=== PATIENT | female | born 1990 | race Caucasian/White ===

== ENCOUNTER 2019-11-09 09:41 | Emergency (ER) | payer SELFPAY ==
[2019-11-09 10:43] LABS: Absolute Lymphocytes (CBC) 1.7 K/uL (0.7-4.9); Basophils % 0.1 % (0-1.3); Lymphocytes % 9.7 % (15.3-44.8)
[2019-11-09] MEDS ORDERED: MORPHINE 4 MG/ML SYR ONE (10:54)
[2019-11-09] MEDS ORDERED: ONDANSETRON 4 MG/2 ML VIAL ONE (10:54)
[2019-11-09] MEDS ORDERED: NA CHLORIDE 0.9% 1,000 ML ONE (10:54)
[2019-11-09 11:04] LABS: Urine Blood 2+ (NEG); Urine Glucose NEGATIVE (NEG); Urine Protein 1+ (NEG)
[2019-11-09 11:14] LABS: Albumin 3.8 g/dL (3.4-5.0); Bilirubin Direct 0.2 mg/dL (0-0.2); Bilirubin Total 0.6 mg/dL (0.2-1.0); Potassium 3.3 mmol/L (3.5-5.1); Protein, Total 7.8 g/dL (6.4-8.2)
--- NOTE | 2019-11-09 11:18 | RAD REPORT ---
EXAM DESCRIPTION: CTAbdomen Pelvis W Contrast - 11/09/2019 11:03 am CLINICAL HISTORY: Abdominal pain. ABD PAIN COMPARISON: No comparisons TECHNIQUE: Biphasic CT imaging of the abdomen and pelvis was performed with 100 ml non-ionic IV cont rast. All CT scans are performed using dose optimization technique as appropriate and may include automated exposure control or mA/KV adjustment according to patient size. FINDINGS: The lung bases are clear. The liver, spleen, pancreas, adrenal glands and kidneys are within normal limits. No bowel obstruction, free air, free fluid or abscess. The appendix is normal. No evidence of signi ficant lymphadenopathy. No suspicious bony findings. IMPRESSION: No acute intra-abdominal or pelvic finding.
[2019-11-09 11:22] LABS: Urine Bacteria 20-50 /HPF (<20); Urine Culture Reflex Order REFLEXED; Urine Mucus HEAVY /HPF (NONE SEEN); Urine RBC >50 /HPF (NONE SEEN)
--- NOTE | 2019-11-09 11:46 | EDPHYS ---
Physician Documentation [facility] Name: Gabbi Oliva Age: 29 yrs Sex: Female : 1990 Arrival Date: 11/09/2019 Time: 09:42 Bed 19 Private MD: None, None ED Physician Chai Kern HPI: 11/08 10:50 This 29 yrs old Female presents to ER via Ambulatory with complaints of pm1 Abdominal Pain, Vomiting. 10:50 The patient presents with abdominal pain in the left lower quadrant. Onset: The pm1 symptoms/episode began/occurred this morning. The symptoms do not radiate. Associated signs and symptoms: Pertinent positives: nausea and vomiting, Pertinent negatives: chest pain, constipation, diarrhea, dysuria, fever, headache, shortness of breath. The symptoms are described as achy. Modifying factors: The symptoms are alleviated by nothing, the symptoms are aggravated by nothing. Severity of pain: in the emergency department the pain has improved prior to arrival. The patient has not experienced similar symptoms in the past. The patient has not recently seen a physician. 10:50 Patient reports that at initial onset of pain, left flank pain present that has now pm1 resolved. 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 - Social history:: Smoking status: Patient denies any tobacco usage or history of. ROS: 10:50 Constitutional: Negative for fever, chills, and weight loss, Cardiovascular: Negative pm1 for chest pain, palpitations, and edema, Respiratory: Negative for shortness of breath, cough, wheezing, and pleuritic chest pain. 10:50 Back: Negative for injury and pain, : Negative for injury, bleeding, discharge, and swelling, MS/Extremity: Negative for injury and deformity, Skin: Negative for injury, rash, and discoloration, Neuro: Negative for headache, weakness, numbness, tingling, and seizure. 10:50 Abdomen/GI: Positive for abdominal pain, nausea and vomiting, Negative for diarrhea, constipation. Exam: 10:50 Constitutional: This is a well developed, well nourished patient who is awake, alert, pm1 and in no acute distress. Head/Face: Normocephalic, atraumatic. Chest/axilla: Normal chest wall appearance and motion. Nontender with no deformity. No lesions are appreciated. 10:50 Back: No spinal tenderness. No costovertebral tenderness. Full range of motion. Skin: Warm, dry with normal turgor. Normal color with no rashes, no lesions, and no evidence of cellulitis. 10:50 MS/ Extremity: Pulses equal, no cyanosis. Neurovascular intact. Full, normal range of motion. 10:50 Cardiovascular: Exam negative for acute changes, Rate: normal, Rhythm: regular, Pulses: no pulse deficits are appreciated. 10:50 Respiratory: Exam negative for acute changes, respiratory distress, shortness of breath. 10:50 Abdomen/GI: Inspection: abdomen appears normal, Palpation: soft, in all quadrants, mild abdominal tenderness, in the left lower quadrant, mass, is not appreciated, rebound tenderness, is not appreciated. 10:50 Musculoskeletal/extremity: 10:50 Neuro: Exam negative for acute changes, Orientation: is normal, Mentation: is normal, Motor: moves all fours. Vital Signs: 09:54 BP 137 / 93; Pulse 77; Resp 16; Temp 97.8; Pulse Ox 100% ; Weight 68.04 kg; Height 5 hb ft. 3 in. (160.02 cm); Pain 5/10; 10:30 BP 108 / 73; Pulse 65; Resp 18; Pulse Ox 100% ; ah 11:57 BP 100 / 69; Pulse 79; Resp 17; Pulse Ox 100% ; ah 09:54 Body Mass Index 26.57 (68.04 kg, 160.02 cm) hb MDM: 09:59 Patient medically screened. pm1 11:41 Data reviewed: vital signs. Data interpreted: Pulse oximetry: on room air is 100 %. pm1 Interpretation: normal. 11:41 ED course: Patient's urine microscopy with contamination from menses. Patient on second pm1 day. Patient reports that she has had some vaginal itching, for the past 2 days, feels like a yeast infection with some urinary frequency. Therefore will treat patient with Diflucan and prescription for UTI. Patient believes possible anaphylaxis from PCN. 11:44 Counseling: I had a detailed discussion with the patient and/or guardian regarding: the pm1 historical points, exam findings, and any diagnostic results supporting the discharge/admit diagnosis, lab results, radiology results, the need for outpatient follow up, to return to the emergency department if symptoms worsen or persist or if there are any questions or concerns that arise at home. 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 pm11/08 10:12 Order name: Basic Metabolic Panel; Complete Time: 11:26 pm11/08 10:12 Order name: CBC with Diff; Complete Time: 10:56 pm11/08 10:12 Order name: Creatinine for Radiology; Complete Time: : pm11/08 10:12 Order name: Hepatic Function; Complete Time: : pm11/08 10:12 Order name: Lipase; Complete Time: : pm11/08 10:12 Order name: Urine Microscopic Only; Complete Time: : pm11/08 10:12 Order name: CT Abd/Pelvis - IV Contrast Only; Complete Time: : pm11/08 10:43 Order name: Urine Dipstick--Ancillary (enter results); Complete Time: 11:08 tt3 11/08 10:50 Order name: Urine --Ancillary (enter results); Complete Time: 11:08 tt3 11/08 11:22 Order name: Urine Culture [facility] 11/08 10:12 Order name: IV Saline Lock; Complete Time: 10:45 pm11/08 10:12 Order name: Labs collected and sent; Complete Time: 10:46 pm11/08 10:12 Order name: Urine Dipstick-Ancillary (obtain specimen); Complete Time: 10:45 pm11/08 10:12 Order name: Urine Test (obtain specimen); Complete Time: 10:45 pm1 Administered Medications: 10:45 Drug: NS 0.9% 1000 ml Route: IV; Rate: 1000 ml; Site: right antecubital; ah 21:58 Follow up: Response: No adverse reaction; IV Status: Completed infusion ah 10:45 Drug: morphine 4 mg Route: IVP; Site: right antecubital; 11:45 Follow up: Response: No adverse reaction 10:45 Drug: Zofran (Ondansetron) 4 mg Route: IVP; Site: right antecubital; 11:45 Follow up: Response: No adverse reaction 12:00 Drug: DiFLUcan 150 mg Route: PO; 12:04 Follow up: Response: Medication administered at discharge. Disposition: 11/09/19 11:45 Discharged to Home. Impression: Unspecified abdominal pain, Urinary tract infection, site not specified. - Condition is Stable. - Discharge Instructions: Abdominal Pain, Adult, Urinary Tract Infection, Adult, Vaginal Yeast Infection, Adult. - Prescriptions for Macrobid 100 mg Oral Capsule - take 1 capsule by ORAL route every 12 hours for 10 days; 20 capsule. Tylenol- Codeine #3 300-30 mg Oral Tablet - take 2 tablets by ORAL route every 6 hours As needed; 20 tablet. - Medication Reconciliation Form, Thank You Letter, Antibiotic Education, Prescription Opioid Use form. - Follow up: Emergency Department; When: As needed; Reason: Worsening of condition. Follow up: Private Physician; When: 2 - 3 days; Reason: Recheck today's complaints, Continuance of care, Re-evaluation by your physician. - Problem is new. - Symptoms have improved. Addendum: 11/10/2019 20:20 Co-signature as Attending Physician, Chai Kern MD I agree with the assessment and c gracia plan of care. Signatures: Dispatcher [employer] EDChai Laguerre MD MD cha Marinas, Patrick, SUPERVISOR IN CIRCUIT TESTING SUPERVISOR IN CIRCUIT TESTING pm1 Tammy Ram RN RN Laura Steven RN RN Corrections: (The following items were deleted from the chart) 11/08 12:16 11:45 11/09/2019 11:45 Discharged to Home. Impression: Unspecified abdominal pain; Urinary tract infection, site not specified. Condition is Stable. Forms are Medication Reconciliation Form, Thank You Letter, Antibiotic Education, Prescription Opioid Use. Follow up: Emergency Department; When: As needed; Reason: Worsening of condition. Follow up: Private Physician; When: 2 - 3 days; Reason: Recheck today's complaints, Continuance of care, Re-evaluation by your physician. Problem is new. Symptoms have improved. pm1
--- NOTE | 2019-11-09 11:46 | ER ---
Nurse's Notes [facility] Name: Gabbi Oliva Age: 29 yrs Sex: Female : 1990 Arrival Date: 11/09/2019 Time: 09:42 Bed 19 Private MD: None, None Diagnosis: Unspecified abdominal pain;Urinary tract infection, site not specified Presentation: 11/08 09:54 Chief complaint: Sharp intermittentl sided abdominal pain and N/V upon waking today. hb Not tolerating fluids. Coronavirus screen: Proceed with normal triage. Ebola Screen: No symptoms or risks identified at this time. Initial Sepsis Screen: Does the patient meet any 2 criteria? No. Patient's initial sepsis screen is negative. Does the patient have a suspected source of infection? No. Patient's initial sepsis screen is negative. Risk Assessment: Do you want to hurt yourself or someone else? Patient reports no desire to harm self or others. Onset of symptoms was November 09, 2019. 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 - Social history:: Smoking status: Patient denies any tobacco usage or history of. Screenin:33 Abuse screen: Denies threats or abuse. Nutritional screening: No deficits noted. Tuberculosis screening: No symptoms or risk factors identified. Fall Risk None identified. Assessment: 10:05 General: Appears in no apparent distress. Behavior is calm. Pain: Complains of pain in left lower quadrant Pain currently is 7 out of 10 on a pain scale. Quality of pain is described as crampy, Pain began 2 hours ago. Neuro: Level of Consciousness is awake, alert, Oriented to person, place, time. Cardiovascular: Heart tones S1 S2 present Capillary refill < 3 seconds. Respiratory: Airway is patent Respiratory effort is even, unlabored, Respiratory pattern is regular, symmetrical. GI: Bowel sounds present X 4 quads. Abdomen is tender to palpation in left lower quadrant Reports cramping, nausea, vomiting. : No signs and/or symptoms were reported regarding the genitourinary system. Denies burning with urination. EENT: No signs and/or symptoms were reported regarding the EENT system. Derm: No signs and/or symptoms reported regarding the dermatologic system. Musculoskeletal: No signs and/or symptoms reported regarding the musculoskeletal system. 10:54 Reassessment: Pt to CT scan at this time. ah 12:05 Reassessment: Discharge instructions given to Pt and education regarding prescriptions. Pt voiced understanding. Vital Signs: 09:54 BP 137 / 93; Pulse 77; Resp 16; Temp 97.8; Pulse Ox 100% ; Weight 68.04 kg; Height 5 hb ft. 3 in. (160.02 cm); Pain 5/10; 10:30 BP 108 / 73; Pulse 65; Resp 18; Pulse Ox 100% ; ah 11:57 BP 100 / 69; Pulse 79; Resp 17; Pulse Ox 100% ; ah 09:54 Body Mass Index 26.57 (68.04 kg, 160.02 cm) hb ED Course: 09:42 Patient arrived in ED. mr 09:43 None, None is Private Physician. mr 09:55 Triage completed. hb 09:56 Arm band placed on. hb 09:59 Kiran Kruse, BESSY is PHCP. pm1 09:59 Chai Kern MD is Attending Physician. pm1 10:03 Laura Steven, RN is Primary Nurse. ah 10:19 Radiology exam delayed due to lab results not completed at this time. (BUN/Creatinine) bq test not completed at this time. 10:30 Inserted saline lock: 20 gauge in right antecubital area, using aseptic technique. ah 11:00 Patient has correct armband on for positive identification. Bed in low position. Call light in reach. Side rails up X 1. 11:05 CT Abd/Pelvis - IV Contrast Only In Process Unspecified. EDMS 12:02 Note: neg upt per ethan abbasi. bq 12:06 No provider procedures requiring assistance completed. ah 12:13 IV discontinued, intact, bleeding controlled, No redness/swelling at site. Pressure dressing applied. Administered Medications: 10:45 Drug: NS 0.9% 1000 ml Route: IV; Rate: 1000 ml; Site: right antecubital; 21:58 Follow up: Response: No adverse reaction; IV Status: Completed infusion 10:45 Drug: morphine 4 mg Route: IVP; Site: right antecubital; 11:45 Follow up: Response: No adverse reaction 10:45 Drug: Zofran (Ondansetron) 4 mg Route: IVP; Site: right antecubital; 11:45 Follow up: Response: No adverse reaction 12:00 Drug: DiFLUcan 150 mg Route: PO; 12:04 Follow up: Response: Medication administered at discharge. Outcome: 11:45 Discharge ordered by . pm1 12:12 Discharged to home ambulatory. 12:12 Condition: good 12:12 Discharge instructions given to patient, Instructed on discharge instructions, follow up and referral plans. medication usage, Demonstrated understanding of instructions, follow-up care, medications, Prescriptions given X 1, 2. 12:16 Patient left the ED. Signatures: Dispatcher [employer] Karolyn VegahuyenAruna Patrick, BESSY FOOD AND BEVERAGE MANAGER pm1 Tammy Ram RN RN hb Harris, Amy, RN RN
[2019-11-09] MEDS ORDERED: FLUCONAZOLE 100 MG TAB ONE (12:00)
[2019-11-09 12:58] VITALS: O2SAT 100
[2019-11-09 13:00] VITALS: TEMP 97.8
[2019-11-09 13:01] VITALS: BP 100/69
== END 2019-11-09 12:16 | disposition home or self-care (01) ==
LOC: ER 09:41
DX: N39.0 Urinary tract infection, site not specified (principal); Z88.0 Allergy status to penicillin
CPT/HCPCS: 36415; 74177; 80048; 80076; 81003; 81015; 81025; 83690; 85025; 87086; 87088; 96361; 96374; 96375; 99284; J2405; J7030; Q9967